=== PATIENT | male | born 1970 | race Caucasian/White ===

== ENCOUNTER 2020-12-22 13:19 | Emergency (ER) | payer OTHER, SELFPAY ==
[2020-12-22 13:29] VITALS: BP 148/85; PULSE 68; RESP 20; TEMP 36.6; O2SAT 98
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
[2020-12-22 14:58] VITALS: BP 124/73; PULSE 68; RESP 16; O2SAT 98
== END 2020-12-22 15:07 | disposition home or self-care (01) ==
PROVIDERS: Emergency Provider Emergency Medicine
DX: S16.1XXA Strain of muscle, fascia and tendon at neck level, initial encounter (principal); S09.90XA Unspecified injury of head, initial encounter; R41.0 Disorientation, unspecified; V89.2XXA Person injured in unspecified motor-vehicle accident, traffic, initial encounter
CPT/HCPCS: 70450; 72125; 99283; 99284

== ENCOUNTER → 2023-03-04 09:07 | Outpatient (CLI) | payer OTHER, SELFPAY ==
--- NOTE | 2023-03-04 09:16 | DI.MRI.S_ITS ---
PROCEDURE: MR PELIS WO/W CON INDICATIONS: Elevated prostate specific antigen [PSA] TECHNIQUE: Coronal HASTE, axial T1 FSE with fat saturation, 3-plane nonbreath-hold T2 FSE. After the administration of contrast, dynamic axial, delayed axial and coronal VIBE or 2-D FLASH with fat saturation through the pelvis. Optional diffusion weighted imaging and ADC may be performed. COMPARISON: None. FINDINGS: Image quality: Diffusion weighted and dynamic contrast enhanced images are diagnostic. Prostate: Gland size is 3.5 x 2.5 x 4.3 cm; ellipsoid gland volume is 19.6 mL gland morphology and zone differentiation is well preserved. There are no suspicious lesions in the peripheral zone or transition zone. Fairly uniform and symmetric enhancement within the gland. Genitourinary system: Bladder wall thickness is normal. Distal ureters are non distended. Bowel and peritoneum: No pathologic free pelvic fluid. Inferior colon and small bowel loops are normal in caliber. Nodes and vessels: No pelvic or inguinal adenopathy by size criteria. Iliac vessels are normal in caliber. Soft tissues: Small bilateral fat containing inguinal hernias. Bones: Marrow demonstrates normal overall signal, without lesions to suggest metastases. IMPRESSION: Normal MRI of the prostate gland. Dictated by: Pippa Case M.D. on 03/04/2023 at 15:16 Approved by: Pippa Case M.D. on 03/04/2023 at 15:29
== END ==
PROVIDERS: Referring Provider Physician Assistant Medical; Visit Provider Physician Assistant Medical
DX: R97.20 Elevated prostate specific antigen [PSA] (principal)
CPT/HCPCS: 72197; A9579

== ENCOUNTER → 2023-03-16 14:05 | Outpatient (CLI) | payer OTHER, SELFPAY ==
--- NOTE | 2023-03-16 | DI.US.S_ITS ---
PROCEDURE: US RENAL COMPLETE INDICATIONS: DISORDER OF KIDNEY AND URETER TECHNIQUE: Real-time scanning was performed of the kidneys and bladder, with image documentation. COMPARISON: None. FINDINGS: Kidneys: Kidneys are normal in size. Right kidney measures 10.3 cm long; left kidney measures 10.4 cm long. Right renal cortical thickness is 1.7 cm; left renal cortical thickness is 1.6 cm. Renal cortical echotexture is normal. No hydronephrosis or nephrolithiasis. No suspicious solid mass lesions. Bladder: Pre-void bladder volume is 275.8 mL. Post-void residual is 72.3 mL. Pre-void images demonstrate no intraluminal masses or stones. Mild bladder wall thickening is seen. On pre-void images, bilateral ureteral jets are noted with color Doppler interrogation. (Of note, ureteral jets may not be detectable in up to 25% of cases due to insufficient differences in specific gravity between ureteral and bladder urine). Miscellaneous: No free pelvic fluid. Incidentally noted of a right hepatic lobe cyst measures 3.1 x 3.5 x 3 cm in size. IMPRESSION: 1. No renal stones or hydronephrosis. No hydroureter. No solid appearing renal lesion. 2. Finding is concerning for chronic urinary outlet obstruction with mild bladder wall thickening and moderate amount of postvoid residual. No discrete bladder wall mass. 3. Incidentally noted of hepatic cyst as above. Dictated by: Ryley Bernstein M.D. on 03/16/2023 at 16:40 Approved by: Ryley Bernstein M.D. on 03/16/2023 at 16:42
== END ==
PROVIDERS: Referring Provider Physician Assistant Medical; Visit Provider Physician Assistant Medical
DX: N28.9 Disorder of kidney and ureter, unspecified (principal); K76.89 Other specified diseases of liver
CPT/HCPCS: 76770